=== PATIENT | female | born 1970 | race Caucasian/White ===

== ENCOUNTER 2020-03-09 11:06 | Inpatient (IN) | payer BC ==
[2020-03-03 13:36] LABS: BASOPHILS # (AUTO) 0.1 X10'3 (0-0.2); BASOPHILS % (AUTO) 0.9 % (0-1); EOSINOPHILS # (AUTO) 0.4 X10'3 (0-0.9); EOSINOPHILS % (AUTO) 3.7 % (0-6); LYMPHOCYTES # (AUTO) 1.9 X10'3 (1.1-4.8); LYMPHOCYTES % (AUTO) 17.1 % (21-51); MEAN CORPUSCULAR HEMOGLOBIN 23.5 PG (27.0-31.0); MEAN CORPUSCULAR HGB CONC 31.2 g/dL (33.0-36.5); MEAN CORPUSCULAR VOLUME 75.4 FL (78-98); MEAN PLATELET VOLUME 8.4 FL (7.4-10.4); MONOCYTES # (AUTO) 0.7 X10'3 (0-0.9); MONOCYTES % (AUTO) 6.2 % (2-12); NEUTROPHILS # (AUTO) 8.1 X10'3 (1.8-7.7); NEUTROPHILS % (AUTO) 72.1 % (42-75); PRE OP HEMOGLOBIN 11.5 g/dL (12.0-16.0); PRE OP PLATELET COUNT 357 X10'3 (140-440); RED CELL DISTRIBUTION WIDTH 25.4 % (11.5-14.5)
[2020-03-03 13:39] LABS: CLARITY,URINE CLOUDY (Clear); COLOR,URINE YELLOW (Yellow); GLUCOSE, URINE NEGATIVE (Neg); KETONES,URINE NEGATIVE (Neg); LEUKOCYTE ESTERASE ,URINE NEGATIVE (Neg); NITRITES, URINE NEGATIVE (Neg); OCCULT BLOOD,URINE NEGATIVE (Neg); PROTEIN,URINE NEGATIVE (Neg); UA COLLECTION TYPE CLN CATCH MIDSTREAM; UROBILINOGEN,URINE 0.2 E.U/dL (0.2-1.0)
[2020-03-03 13:48] LABS: MUCUS STRANDS FEW /LPF (Neg); SQUAMOUS EPITHELIAL CELL,UR MANY /LPF (FEW)
[2020-03-03 13:49] LABS: BACTERIA,URINE 2+ /HPF (Neg); RBC,URINE 0-2 /HPF (0-2); WBC,URINE 0-4 /HPF (0-4)
[2020-03-03 13:53] LABS: ANISOCYTOSIS 3+; LARGE PLATELETS FEW; MICROCYTOSIS 1+; PLATELET ESTIMATE NORMAL
[2020-03-03 13:54] LABS: HYPOCHROMASIA 1+
[2020-03-03 14:09] LABS: ALBUMIN 3.5 G/DL (3.4-5.0); ALBUMIN/GLOBULIN RATIO 0.8 (1.1-1.5); ALKALINE PHOSPHATASE 75 IU/L (46-116); BLOOD UREA NITROGEN 8 MG/DL (7-18); BUN/CREATININE RATIO 9.4 (6.6-38.0); CALCIUM 9.1 MG/DL (8.5-10.1); CHLORIDE 104 MMOL/L (99-107); CREATININE 0.85 MG/DL (0.40-0.90); PRE OP ANION GAP 8 (8-16); PRE OP AST 71 U/L (10-37); PRE OP BILIRUB, TOTAL 0.3 MG/DL (0.0-1.0); PRE OP GLUCOSE 87 MG/DL (70-104); PRE OP SODIUM 138 MMOL/L (135-145); TOTAL CARBON DIOXIDE 25.8 MMOL/L (24-32); TOTAL PROTEIN 7.7 G/DL (6.4-8.2); eGFR 71 ML/MIN
[2020-03-03 14:10] LABS: PRE OP ALT 96 U/L (30-65)
[2020-03-09] VITALS (16 sets, daily range): BP systolic 113–142; BP diastolic 64–78
[~2020-03-09] VITALS: Ht 157.5 cm; Wt 102.2 kg
[~2020-03-09 11:06] MED LIST: ASCO-134 PO; BIOT5000 PO; BUPIVAcaine/PF 2.5 mg/ml (0.25%) 30ml vial ONE; CETI-194 PO; CHOL20004 PO; INUL2TAB5 PO; IRON1TAB93 PO; LACT1CAP75 PO; LEVO75TA7 PO; MULT-1085 PO; OMEG-79 PO; albuterol 2.5 MG/3 ML nebule NEB ONE; ceFOXitin 2 GM ADDVANTGE BAG 50 ML IV ONE; famotidine 20mg tablet PO ONE; ringers solution, lacted 1,000 ML IV SCH
[2020-03-09] MEDS ORDERED: ringers solution, lacted 1,000 ML IV SCH (11:50)
[2020-03-09] MEDS ORDERED: morphine 2 MG/ML inj. syringe IV PRN (11:50)
[2020-03-09] MEDS ORDERED: proCHLORperazine 10 MG/2 ml inj IV PRN (11:50)
[2020-03-09] MEDS ORDERED: morphine 4 MG/ML inj SYRINge IV PRN (11:50)
[2020-03-09] MEDS ORDERED: meperidine/PF 25mg/ml syringe IV PRN ×3 (11:50)
[2020-03-09] MEDS ORDERED: ondansetron/PF 4mg/2ml inj IV PRN (11:50)
[2020-03-09] MEDS ORDERED: LIDOcaine 1% (10mg/ml) 2ml vial ONE (12:17)
[2020-03-09] MEDS ORDERED: ceFAZolin 1000mg inj ONE (13:09)
[2020-03-09] MEDS ORDERED: BUPIVAcaine/PF 2.5 mg/ml (0.25%) 30ml vial ONE (13:09)
[2020-03-09] MEDS ORDERED: propofol inj 20 ML IV ONE (14:29)
[2020-03-09] MEDS ORDERED: LIDOcaine 2% (20mg/ml) 5ml vial ONE (14:29)
[2020-03-09] MEDS ORDERED: rocuronium 10mg/ml inj IV ONE (14:29)
[2020-03-09] MEDS ORDERED: ondansetron/PF 4mg/2ml inj ONE (14:31)
[2020-03-09] MEDS ORDERED: sevoflurane 250ml liquid IH ONE (16:00)
[2020-03-09] MEDS ORDERED: dexamethasone sod phosphate 10mg/ml inj ONE (16:00)
[2020-03-09] MEDS ORDERED: midazolam 2 mg/2 ml injection ONE (16:11)
[2020-03-09] MEDS ORDERED: fentaNYL/PF 50MCG/1 ML 2ML syringe ONE ×2 (16:11→16:22)
[2020-03-09] MEDS ORDERED: BUPIVAcaine 2.5mg/ml inj 50ml vial (contains preservative) SQ ONE (16:47)
[2020-03-09] MEDS ORDERED: hydrALAZINE 20mg/ml inj. IV ONE (16:50)
[2020-03-09] MEDS ORDERED: ketorolac trometh. 30mg/ml inj. ONE (17:43)
[2020-03-09] MEDS ORDERED: acetaminophen 1,000mg/100ml IV 100 ML IV ONE (17:48)
--- NOTE | 2020-03-09 17:58 | NUR ---
Received from OR via SURGICAL BED , accompanied by Anesthesiologist LUISITO and report given by Anesthesiolgist. PATIENT WITH 20G PIV IN RIGHT UE RUNNING LR AT 100. VSS. MIDLINE ABDOMINAL DRESSING IS CDI. NO DRAINAGE PRESENT AT THIS TIME. SCDS DONNED. GAMBOA CATHETER PRESENT WITH CLEAR YELLOW URINE IN ATRIUM. 3L NASAL CANNULA ON WITH 96% SATURATIONS. Addendum: 03/09/20 at 1817 by Kingston Jackson RN, RN Amended: Links added.
[2020-03-09] MEDS: Potassium Cl inj 20 MEQ in ringers solution, lacted 1,000 ML IV SCH (18:11)
[2020-03-09] MEDS ORDERED: naloxone 0.4 mg/ml inj IV PRN (18:15)
[2020-03-09] MEDS ORDERED: CADD PCA waste documentation MC PRN (18:15)
--- NOTE | 2020-03-09 18:30 | NUR ---
Received report from Kingston ANNE from recovery. Pt arrived on guranderson, s.l., nasal canula at 2L, vss, still drowsy from recovery, no signs of distress will continue to monitor
--- NOTE | 2020-03-09 18:58 | NUR ---
Patient has met criteria for transfer to floor. Patient vss. Pain at a tolerable level. Transferred via bed to room where they were hooked to vitals and RN notified patient has arrived. Bed low, call light within reach, 2-3 rails up, vss, belongings placed in room. Care turned over to RN. DAYANA UMANA PRESENT TO ACCEPT CARE OF PATIENT. ONE BAG OF BELONGINGS WITH ANOTHER WITHIN PLACED IN CLOSET OF 344A Addendum: 03/09/20 at 1917 by Kingston Mustafa - DAYANA RN Amended: Links added.
[2020-03-09] MEDS ORDERED: HYDROmorphone/NS 1 mg/ml CADD 50 ML IV SCH ×2 (19:00)
[2020-03-09] MEDS: HYDROmorphone/NS 1 mg/ml CADD 50 ML IV SCH ×4 (19:00→23:00)
[2020-03-10] VITALS: BP 123/64
[2020-03-10] MEDS: HYDROmorphone/NS 1 mg/ml CADD 50 ML IV SCH ×12 (01:00→23:00)
[2020-03-10] MEDS: Potassium Cl inj 20 MEQ in ringers solution, lacted 1,000 ML IV SCH ×2 (03:47→15:18)
[2020-03-10 05:04] LABS: BASOPHILS % (AUTO) 0.1 % (0-1); EOSINOPHILS % (AUTO) 0 % (0-6); HEMATOCRIT 34.6 % (35.0-45.0); HEMOGLOBIN 10.7 g/dl (12.0-16.0); LYMPHOCYTES # (AUTO) 0.8 X10'3 (1.1-4.8); LYMPHOCYTES % (AUTO) 6.3 % (21-51); MEAN CORPUSCULAR HEMOGLOBIN 23.8 PG (27.0-31.0); MEAN CORPUSCULAR VOLUME 76.7 FL (78-98); MEAN PLATELET VOLUME 8.1 FL (7.4-10.4); MONOCYTES # (AUTO) 0.3 X10'3 (0-0.9); MONOCYTES % (AUTO) 2.7 % (2-12); NEUTROPHILS # (AUTO) 11.5 X10'3 (1.8-7.7); NEUTROPHILS % (AUTO) 90.9 % (42-75); PLATELET COUNT 322 X10'3 (140-440); RED BLOOD COUNT 4.51 X10'6 (4.20-5.60); RED CELL DISTRIBUTION WIDTH 24.1 % (11.5-14.5); WHITE BLOOD COUNT 12.7 X10'3 (4.5-11.0)
[2020-03-10 05:30] LABS: PLATELET ESTIMATE NORMAL
[2020-03-10 05:31] LABS: ANISOCYTOSIS 2+; MICROCYTOSIS 1+
[2020-03-10 05:32] LABS: ELLIPTOCYTES FEW
--- NOTE | 2020-03-10 06:21 | NUR ---
Problems reprioritized. Patient report given, questions answered & plan of care reviewed with Shanika ANNE.
--- NOTE | 2020-03-10 06:30 | NUR ---
Patient in room [facility]. I have received report from Helga ANNE and had the opportunity to ask questions and assume patient care.
--- NOTE | 2020-03-10 07:49 | NUR ---
Patient ambulate in the hallway x 3 laps accompanied by RIPSAW MATCHER
[2020-03-10] MEDS ORDERED: [UNRECOGNIZED DRUG - OTHER] PO SCH (08:00)
[2020-03-10] MEDS ORDERED: omega-3 acid ethyl esters 1GM capsule PO SCH (08:00)
[2020-03-10] MEDS ORDERED: DSS PO SCH (08:00)
[2020-03-10] MEDS ORDERED: INULIN PO SCH (08:00)
[2020-03-10] MEDS ORDERED: GLUC PO SCH (08:00)
[2020-03-10] MEDS ORDERED: B12 PO SCH (08:00)
[2020-03-10] MEDS ORDERED: IRON CARB PO SCH (08:00)
[2020-03-10] MEDS: lactobacillus rhamnosus 10,000 MMU CELLS/CAPSULE PO SCH (08:03)
[2020-03-10] MEDS: cetirizine 10mg tablet PO SCH (08:03)
[2020-03-10] MEDS: vitamin D (cholecalciferol) 1,000 unit tablet PO SCH (08:03)
[2020-03-10] MEDS: ascorbic acid 500mg tablet PO SCH (08:03)
[2020-03-10] MEDS: multivitamins, therapeutics tablet PO SCH (08:03)
[2020-03-10] MEDS: levoTHYROXINE 75mcg tablet PO SCH (08:03)
[2020-03-10] MEDS: enoxaparin 40mg/0.4ml syringe SQ SCH (08:04)
--- NOTE | 2020-03-10 08:29 | NUR ---
Patient stated she already voided this am after she went for a walk
[2020-03-10 11:00] VITALS: BP 132/59
[2020-03-10] MEDS: OMEGA-3/DHA/EPA/FISH OIL 1 EACH CAPSULE.DR PO SCH (12:02)
--- NOTE | 2020-03-10 18:28 | NUR ---
Problems reprioritized. Patient report given, questions answered & plan of care reviewed with Sandra ANNE.
[2020-03-10 19:00] VITALS: BP 131/65
--- NOTE | 2020-03-10 19:00 | NUR ---
Patient in room [facility]. I have received report from KEN ANNE and had the opportunity to ask questions and assume patient care.
[2020-03-11] VITALS: BP 124/71
[2020-03-11] MEDS: HYDROmorphone/NS 1 mg/ml CADD 50 ML IV SCH ×7 (01:00→12:50)
[2020-03-11 05:15] LABS: BASOPHILS # (AUTO) 0.1 X10'3 (0-0.2); BASOPHILS % (AUTO) 0.7 % (0-1); EOSINOPHILS # (AUTO) 0.1 X10'3 (0-0.9); EOSINOPHILS % (AUTO) 0.5 % (0-6); HEMOGLOBIN 9.9 g/dl (12.0-16.0); LYMPHOCYTES # (AUTO) 2.6 X10'3 (1.1-4.8); LYMPHOCYTES % (AUTO) 24.1 % (21-51); MEAN CORPUSCULAR HEMOGLOBIN 24.9 PG (27.0-31.0); MEAN CORPUSCULAR HGB CONC 31.9 g/dL (33.0-36.5); MEAN CORPUSCULAR VOLUME 77.9 FL (78-98); MEAN PLATELET VOLUME 8.2 FL (7.4-10.4); MONOCYTES # (AUTO) 0.9 X10'3 (0-0.9); MONOCYTES % (AUTO) 8.2 % (2-12); NEUTROPHILS # (AUTO) 7.1 X10'3 (1.8-7.7); NEUTROPHILS % (AUTO) 66.5 % (42-75); PLATELET COUNT 280 X10'3 (140-440); RED BLOOD COUNT 3.97 X10'6 (4.20-5.60); RED CELL DISTRIBUTION WIDTH 24.6 % (11.5-14.5); WHITE BLOOD COUNT 10.7 X10'3 (4.5-11.0)
[2020-03-11] MEDS: Potassium Cl inj 20 MEQ in ringers solution, lacted 1,000 ML IV SCH ×2 (05:25→21:22)
--- NOTE | 2020-03-11 06:13 | NUR ---
Problems reprioritized. Patient report given, questions answered & plan of care reviewed with RIGO ANNE.
--- NOTE | 2020-03-11 06:31 | NUR ---
Problems reprioritized. Patient report given, questions answered & plan of care reviewed with Jm ANNE.
[2020-03-11 07:01] LABS: ANISOCYTOSIS 3+; HYPOCHROMASIA 1+; MICROCYTOSIS 1+; PLATELET ESTIMATE NORMAL; POLYCHROMASIA 1+; TOTAL CELLS COUNTED 100
[2020-03-11 07:30] VITALS: BP 137/80
[2020-03-11] MEDS: ascorbic acid 500mg tablet PO SCH (07:42)
[2020-03-11] MEDS: multivitamins, therapeutics tablet PO SCH (07:42)
[2020-03-11] MEDS: cetirizine 10mg tablet PO SCH (07:42)
[2020-03-11] MEDS: levoTHYROXINE 75mcg tablet PO SCH (07:42)
[2020-03-11] MEDS: vitamin D (cholecalciferol) 1,000 unit tablet PO SCH (07:43)
[2020-03-11] MEDS: OMEGA-3/DHA/EPA/FISH OIL 1 EACH CAPSULE.DR PO SCH (07:43)
[2020-03-11] MEDS: lactobacillus rhamnosus 10,000 MMU CELLS/CAPSULE PO SCH (07:43)
[2020-03-11] MEDS: enoxaparin 40mg/0.4ml syringe SQ SCH (07:43)
[2020-03-11 11:00] VITALS: BP 159/94
[2020-03-11] MEDS ORDERED: HYDROcodone/acetaminophen 10/325mg tab PO PRN (12:55)
[2020-03-11] MEDS ORDERED: HYDROcodone/acetaminophen 5mg/325mg tablet PO PRN (12:55)
[2020-03-11 18:00] VITALS: BP 144/85
--- NOTE | 2020-03-11 18:08 | NUR ---
Problems reprioritized. Patient report given, questions answered & plan of care reviewed with María ANNE.
--- NOTE | 2020-03-11 18:46 | NUR ---
Patient in room [facility]. I have received report from DAYANA Clarke and had the opportunity to ask questions and assume patient care. Addendum: 03/11/20 at 1846 by Yanci Valle RN Amended: Links added.
[2020-03-12] VITALS: BP 153/81
[2020-03-12 05:13] LABS: BASOPHILS # (AUTO) 0.1 X10'3 (0-0.2); BASOPHILS % (AUTO) 0.9 % (0-1); EOSINOPHILS # (AUTO) 0.3 X10'3 (0-0.9); EOSINOPHILS % (AUTO) 3.1 % (0-6); LYMPHOCYTES # (AUTO) 2.2 X10'3 (1.1-4.8); LYMPHOCYTES % (AUTO) 26.6 % (21-51); MEAN CORPUSCULAR HEMOGLOBIN 24.2 PG (27.0-31.0); MEAN CORPUSCULAR HGB CONC 31.3 g/dL (33.0-36.5); MEAN CORPUSCULAR VOLUME 77.5 FL (78-98); MEAN PLATELET VOLUME 8.2 FL (7.4-10.4); MONOCYTES # (AUTO) 0.8 X10'3 (0-0.9); MONOCYTES % (AUTO) 9.6 % (2-12); NEUTROPHILS # (AUTO) 4.9 X10'3 (1.8-7.7); NEUTROPHILS % (AUTO) 59.8 % (42-75); PLATELET COUNT 278 X10'3 (140-440); RED BLOOD COUNT 4.13 X10'6 (4.20-5.60); WHITE BLOOD COUNT 8.2 X10'3 (4.5-11.0)
--- NOTE | 2020-03-12 06:30 | NUR ---
Patient in room [facility]. I have received report from María John RN and had the opportunity to ask questions and assume patient care.
--- NOTE | 2020-03-12 06:31 | NUR ---
Problems reprioritized. Patient report given, questions answered & plan of care reviewed with DAYANA Jolley.
[2020-03-12 07:30] VITALS: BP 151/72
[2020-03-12] MEDS: multivitamins, therapeutics tablet PO SCH (08:13)
[2020-03-12] MEDS: vitamin D (cholecalciferol) 1,000 unit tablet PO SCH (08:13)
[2020-03-12] MEDS: levoTHYROXINE 75mcg tablet PO SCH (08:13)
[2020-03-12] MEDS: OMEGA-3/DHA/EPA/FISH OIL 1 EACH CAPSULE.DR PO SCH (08:13)
[2020-03-12] MEDS: lactobacillus rhamnosus 10,000 MMU CELLS/CAPSULE PO SCH (08:13)
[2020-03-12] MEDS: ascorbic acid 500mg tablet PO SCH (08:13)
[2020-03-12] MEDS: cetirizine 10mg tablet PO SCH (08:13)
[2020-03-12] MEDS: enoxaparin 40mg/0.4ml syringe SQ SCH (08:14)
[2020-03-12 12:00] VITALS: BP 147/87
[2020-03-12] MEDS: Potassium Cl inj 20 MEQ in ringers solution, lacted 1,000 ML IV SCH (12:19)
--- NOTE | 2020-03-12 13:45 | NUR ---
Patient in room [facility]. I have received report from Saskia ANNE and had the opportunity to ask questions and assume patient care.
--- NOTE | 2020-03-12 14:16 | NUR ---
Reviewed previous RN's assessment and I agree 100%. Pt is A & O, walking almost every hour, pt + bowels sounds, passing gas, pt very nice and wanting to go hm. Dr Hendricks is the the only Dr. on file, it is noted that Dr Menjivar is detention officer and will follow up with pt's care.
--- NOTE | 2020-03-12 16:15 | NUR ---
Pt DC to home with . Pt A & O x4 in no apparent discomfort. Pt's Dressing D & I, Pt verbalizes understanding of all DC instructions and the importance of following up with Dr Hendricks in 1 week. IV cath removed, intact. Pt packed all belongings including plants and farrell. Pt very exited to go home. Pt is stable and appropriate. Pt was wheeled out to the front by staff member where pt's picked her up.
== END 2020-03-12 16:17 | disposition home or self-care (01) | DRG 330 ==
LOC: PAS IN 11:06 → UNDOADMIN 11:06 → EDSTATUS 14:00 → PAS IN 18:11 → SUR 3N 19:26 → PAS IN 19:26
PROVIDERS: ADMIT Surgery; ATTEND Surgery
PROC: 0DTK4ZZ Resection of Ascending Colon, Percutaneous Endoscopic Approach (ICD-10-PCS; principal; 2020-03-10)
DX: C18.2 Malignant neoplasm of ascending colon (principal); Z68.41 Body mass index [BMI] 40.0-44.9, adult; E66.9 Obesity, unspecified; J45.909 Unspecified asthma, uncomplicated; Z86.32 Personal history of gestational diabetes; Z88.8 Allergy status to other drugs, medicaments and biological substances
CPT/HCPCS: Z7506; Z7508; 36415; 80053; 81001; 82948; 84443; 85025; 86885; 86900; 86901; 86920; 87081; 87635; 93005; A4618; A7000; C1758; G0378; J0131; J0360; J0690; J0694; J1100; J1170; J1650; J1885; J2001; J2250; J2405; J2704; J3010; J3480; J3490; J7120